=== PATIENT | female | born 1960 | race Caucasian/White ===

== ENCOUNTER 2024-09-10 14:30 | Outpatient (RCR) | payer MEDICARE, SELFPAY | END 2024-09-15 13:22 | disposition home or self-care (01) | LOC: ANHDMC 14:30 | PROVIDERS: PCP Internal Medicine; Visit Provider Internal Medicine | DX: E11.9 Type 2 diabetes mellitus without complications (principal); Z71.89 Other specified counseling | CPT/HCPCS: G0108; G0109 ==

== ENCOUNTER 2024-10-01 14:32 | Outpatient (RCR) | payer MEDICARE, SELFPAY | END 2024-12-22 10:31 | disposition home or self-care (01) | LOC: ANHDMC 14:32 | PROVIDERS: PCP Internal Medicine; Visit Provider Internal Medicine | DX: E11.9 Type 2 diabetes mellitus without complications (principal); Z71.89 Other specified counseling | CPT/HCPCS: G0109 ==

== ENCOUNTER 2025-04-17 13:47 | Outpatient (CLI) | payer MEDICARE, SELFPAY ==
--- NOTE | ~2025-04-17 | DEXA_ITS ---
Bone Density Report Name: ANDREW DANIEL Age: 64 Sex: Female Ethnicity: White Date of : 1960 Indication: postmenopausal; screening for osteoporosis; parental hip fracture; height loss; Referring Provider: JUAN, TRUPTI Study: Bone densitometry was performed. Exam Date: April 17, 2025 Accession number: [id number] Bone Density: Region BMD T-score Z-score Classification AP Spine(L1-L4) 1.033 -0.1 1.8 Normal Femoral Neck (Left) 0.784 -0.6 1.0 Normal Total Hip (Left) 0.920 -0.2 1.2 Normal Femoral Neck (Right) 0.790 -0.5 1.1 Normal Total Hip (Right) 0.948 0.1 1.4 Normal Total Hip Mean 0.934 -0.1 1.3 Normal World Health Organization criteria for BMD impression classify patients as: Normal (T-score at or above -1.0), Osteopenia (T-score between -1.0 and -2.5), or Osteoporosis (T-score at or below -2.5). 10-year Fracture Risk: FRAX not reported because: All T-scores for Spine Total, Hip Total, Femoral Neck at or above -1.0 Clinical Information Provided by Patient: Parent has had a hip fracture Patient maximum height was 64 Menopause Age: 59 Onset of menses at age 10 Number of children 1 Impression: The patient has normal bone mass. The patient has risk factors, including: parental hip fracture. Discussion: BONE DENSITY IS ABOVE THE MINIMUM DESIRABLE LEVEL AT ALL SKELETAL SITES TESTED. This patient?s bone mineral density is above the minimum desirable level (T-score -1.0 or better) at all sites measured. The patient should follow a healthful lifestyle (good nutrition with adequate calcium and vitamin D, and appropriate weight-bearing exercise). Follow-Up: Consider repeating this study in 5 years or sooner if there is some new clinical indication. Reported by: ISMA on 04/17/2025 2:30:00 PM. Reviewed, dictated and finalized at location A.
== END 2025-04-17 13:48 | disposition home or self-care (01) ==
LOC: ANHFOHIMG 13:50
PROVIDERS: PCP Internal Medicine; Visit Provider Internal Medicine
DX: Z13.820 Encounter for screening for osteoporosis (principal); Z78.0 Asymptomatic menopausal state
CPT/HCPCS: 77080